=== PATIENT | male | born 1980 | race Two or more races ===

== ENCOUNTER → 2018-03-11 | Outpatient (CLI) | payer OTHER | END | disposition home or self-care (01) | LOC: SONOGRAMA 09:45 | DX: R22.32 Localized swelling, mass and lump, left upper limb (principal) ==

== ENCOUNTER 2018-05-05 11:43 | Outpatient (CLI) | payer OTHER | END 2018-05-05 14:41 | disposition home or self-care (01) | LOC: RAD 11:43 | DX: M79.671 Pain in right foot (principal) ==

== ENCOUNTER 2018-06-29 08:17 | Outpatient (CLI) | payer OTHER | END 2018-06-29 08:21 | disposition home or self-care (01) | LOC: SONOGRAMA 08:17 | DX: N20.0 Calculus of kidney (principal) ==

== ENCOUNTER 2019-08-24 09:34 | Outpatient (CLI) | payer OTHER | END 2019-08-24 09:36 | disposition home or self-care (01) | LOC: RAD 09:34 | PROVIDERS: ATTEND Family Medicine | DX: M54.2 Cervicalgia (principal) ==